=== PATIENT | female | born 1990 | race Caucasian/White ===

== ENCOUNTER 2018-04-23 14:00 | Inpatient (IN) | payer OTHER ==
[~2018-04-23] VITALS: Ht 154.9 cm; Wt 127.0 kg
[2018-04-23] MEDS: LACTATED RINGERS 1,000 ML IV SCH (14:50)
[2018-04-23] MEDS ORDERED: OXYTOCIN 20 UNITS in LACTATED RINGERS 1,000 ML IV SCH (15:26)
[2018-04-23] MEDS ORDERED: PROMETHAZINE 25 MG/ML VIAL IVP PRN (15:30)
[2018-04-23] MEDS ORDERED: IBUPROFEN 800 MG TAB PO PRN (15:30)
[2018-04-23] MEDS ORDERED: NALBUPHINE 10 MG/ML AMP IVP PRN (15:30)
[2018-04-23] MEDS ORDERED: CARBOPROST 250 MCG/ML AMP IM PRN (15:30)
[2018-04-23] MEDS ORDERED: METHYLERGONOVINE 0.2 MG/ML AMP IM PRN (15:30)
[2018-04-23] MEDS ORDERED: PREN-546 PO (15:38)
[2018-04-23] MEDS ORDERED: ALBU0.0912 IH (15:38)
[2018-04-23] MEDS ORDERED: CALC500T2 PO (15:38)
[2018-04-23] MEDS ORDERED: MISOPROSTOL 25 MCG TAB ONE ×2 (16:14→21:58)
[2018-04-23] MEDS: MISOPROSTOL 25 MCG TAB VG PRN ×2 (16:16→22:05)
[2018-04-23 17:27] LABS: BASOPHILS % (AUTO) 0.3 % (0.0-2.0); EOSINOPHILS # (AUTO) 0.1 K/uL (0-0.4); HEMATOCRIT 27.4 % (36-48); HEMOGLOBIN 8.4 g/dL (12.0-16.0); LYMPHOCYTES # (AUTO) 1.9 K/uL (2.5-16.5); LYMPHOCYTES % (AUTO) 22.1 % (20.5-51.1); MEAN CORPUSCULAR HEMOGLOBIN 22 pg (27-31); MEAN CORPUSCULAR HGB CONC 31 g/dL (33-37); MEAN CORPUSCULAR VOLUME 70.1 fL (80-94); MONOCYTES # (AUTO) 0.4 K/uL (0.8-1.0); MONOCYTES % (AUTO) 5.1 % (1.7-9.3); NEUTROPHILS % (AUTO) 71.5 % (42.2-75.2); PLATELET COUNT (AUTO) 285 K/uL (140-450); RED BLOOD CELL COUNT(AUTO) 3.91 MIL/uL (4.20-5.40); WHITE BLOOD COUNT (AUTO) 8.4 K/uL (4.8-10.8)
[2018-04-23 17:27] LABS: APPEARANCE,URINE SL CLOUDY (CLEAR); BILIRUBIN,URINE NEGATIVE (NEGATIVE); BLOOD, URINE NEGATIVE (NEGATIVE); COLOR,URINE YELLOW (YELLOW); LEUKOCYTE ESTERASE ,URINE 2+ (NEGATIVE); NITRITE, URINE NEGATIVE (NEGATIVE); UGLUCOSE NEGATIVE (NEGATIVE)
[2018-04-23 17:39] LABS: ALBUMIN 2.1 g/dL (3.4-5.0); ANION GAP 14.2 (8-16); CARBON DIOXIDE 22.4 mmol/L (21-32); CREATININE 0.4 mg/dL (0.6-1.3); POTASSIUM 3.6 mmol/L (3.5-5.1); TOTAL BILIRUBIN 0.2 mg/dL (0.0-1.0)
[2018-04-23 18:27] LABS: RBC,URINE 3-10 (FEW) /HPF (0-5); WBC,URINE 20-60 /HPF (0-5)
[2018-04-23] MEDS ORDERED: OXYTOCIN 10 UNITS/ML VIAL IM SCH (19:00)
[2018-04-24] MEDS ORDERED: MISOPROSTOL 25 MCG TAB ONE (05:12)
--- NOTE | 2018-04-24 08:48 | NUR ---
PATIENT HAS BEEN SCREENED AND CATEGORIZED LOW NUTRITION RISK. PATIENT WILL BE SEEN WITHIN 7 DAYS OF ADMISSION. 04/30/[address]
[2018-04-24] MEDS: LACTATED RINGERS 1,000 ML IV SCH (11:01)
[2018-04-24] MEDS ORDERED: BUPIVACAINE/DEXT 0.75% SPINAL 2 ML AMP INJ ONE (11:20)
[2018-04-24] MEDS ORDERED: OXYTOCIN 10 UNITS/ML VIAL ONE (11:21)
[2018-04-24] MEDS ORDERED: MIDAZOLAM 2 MG/2 ML VIAL ONE (11:22)
[2018-04-24] MEDS ORDERED: MORPHINE PRES FREE 2 MG/2 ML 2 mL UD SYRINGE ONE (11:22)
[2018-04-24] MEDS ORDERED: ceFAZolin 1,000 MG VIAL IVP ONE (11:38)
[2018-04-24] MEDS ORDERED: OXYTOCIN 20 UNITS in LACTATED RINGERS 1,000 ML IV SCH (12:02)
[2018-04-24] MEDS ORDERED: HYDROmorphone 1 MG/ML AMP IVP PRN (12:05)
[2018-04-24] MEDS ORDERED: NALOXONE 0.4 MG/ML VIAL IVP PRN ×3 (12:05)
[2018-04-24] MEDS ORDERED: ONDANSETRON 4 MG/2 ML VIAL IVP PRN ×2 (12:05)
[2018-04-24] MEDS ORDERED: diphenhydrAMINE 50 MG/ML VIAL IVP PRN ×2 (12:05)
[2018-04-24] MEDS ORDERED: MEPERIDINE 25 MG/ML SYR IVP PRN (12:05)
[2018-04-24] MEDS ORDERED: NALBUPHINE 10 MG/ML AMP IVP PRN (12:05)
[2018-04-24] MEDS ORDERED: ONDANSETRON 4 MG/2 ML VIAL ONE (13:03)
[2018-04-24] MEDS ORDERED: OXYTOCIN 20 UNITS/LR PREMIX 1,000 ML IV ONE (13:08)
[2018-04-24] MEDS ORDERED: SIMETHICONE 80 MG TAB.CHEW PO PRN (13:55)
[2018-04-24] MEDS ORDERED: SODIUM PHOSPHATE 118 ML ENEM RC PRN (13:55)
[2018-04-24] MEDS ORDERED: TEMAZEPAM 15 MG CAP PO PRN (13:55)
[2018-04-24] MEDS ORDERED: HYDROcodone/APAP 5/325 MG 1 TAB TAB PO PRN (13:55)
[2018-04-24] MEDS ORDERED: METHYLERGONOVINE 0.2 MG/ML AMP IM PRN (13:55)
[2018-04-24] MEDS ORDERED: IBUPROFEN 800 MG TAB PO PRN (14:00)
[2018-04-24] MEDS: OXYTOCIN 20 UNITS in LACTATED RINGERS 1,000 ML IV SCH (15:50)
[2018-04-24] MEDS: SENNA 8.6 MG TAB PO SCH (21:35)
[2018-04-25] MEDS: OXYTOCIN 20 UNITS in LACTATED RINGERS 1,000 ML IV SCH ×2 (00:27→09:40)
[2018-04-25] MEDS: KETOROLAC 30 MG/ML VIAL IM/IVP SCH ×3 (00:30→15:12)
[2018-04-25] MEDS ORDERED: OXYTOCIN 20 UNITS/LR PREMIX 1,000 ML IV ONE (06:34)
[2018-04-25 07:47] LABS: BASOPHILS % (AUTO) 0.4 % (0.0-2.0); EOSINOPHILS # (AUTO) 0.1 K/uL (0-0.4); EOSINOPHILS % (AUTO) 0.6 % (0.0-4.0); HEMATOCRIT 22.7 % (36-48); LYMPHOCYTES # (AUTO) 1.4 K/uL (2.5-16.5); LYMPHOCYTES % (AUTO) 11.9 % (20.5-51.1); MEAN CORPUSCULAR HEMOGLOBIN 22 pg (27-31); MEAN CORPUSCULAR HGB CONC 31 g/dL (33-37); MEAN CORPUSCULAR VOLUME 70.2 fL (80-94); MONOCYTES # (AUTO) 0.8 K/uL (0.8-1.0); MONOCYTES % (AUTO) 6.9 % (1.7-9.3); NEUTROPHILS # (AUTO) 9.1 K/uL (1.8-7.7); NEUTROPHILS % (AUTO) 80.2 % (42.2-75.2); PLATELET COUNT (AUTO) 197 K/uL (140-450); RED BLOOD CELL COUNT(AUTO) 3.24 MIL/uL (4.20-5.40); RED CELL DISTRIBUTION WIDTH 18.1 % (11.6-13.7); WHITE BLOOD COUNT (AUTO) 11.4 K/uL (4.8-10.8)
[2018-04-25] MEDS: FERROUS SULFATE 325 MG TABEC PO SCH (17:00)
[2018-04-25] MEDS: SENNA 8.6 MG TAB PO SCH (21:09)
[2018-04-25] MEDS: oxyCODONE/APAP 5/325 MG 1 TAB TAB PO PRN (21:12)
[2018-04-26] MEDS: oxyCODONE/APAP 5/325 MG 1 TAB TAB PO PRN ×3 (03:38→16:32)
[2018-04-26] MEDS: FERROUS SULFATE 325 MG TABEC PO SCH ×2 (08:00→17:00)
[2018-04-26] MEDS: SENNA 8.6 MG TAB PO SCH (21:12)
[2018-04-27] MEDS ORDERED: IBUP-1842 PO (08:16)
[2018-04-27] MEDS: FERROUS SULFATE 325 MG TABEC PO SCH (09:46)
== END 2018-04-27 14:15 | disposition home or self-care (01) | DRG 540 ==
LOC: MLD 14:00 → MFCC 04-24 13:52
PROVIDERS: ADMIT Obstetrics & Gynecology; ATTEND Obstetrics & Gynecology
PROC: 10D00Z1 Extraction of Products of Conception, Low, Open Approach (ICD-10-PCS; principal; 2018-04-24 11:30)
PROC: 3E0234Z Introduction of Serum, Toxoid and Vaccine into Muscle, Percutaneous Approach (ICD-10-PCS; 2018-04-26)
DX: O62.2 Other uterine inertia (principal); E66.01 Morbid (severe) obesity due to excess calories; Z37.0 Single live birth; Z68.43 Body mass index [BMI] 50.0-59.9, adult; O99.214 Obesity complicating childbirth; O99.52 Diseases of the respiratory system complicating childbirth; J45.909 Unspecified asthma, uncomplicated; O36.63X0 Maternal care for excessive fetal growth, third trimester, not applicable or unspecified; Z3A.39 39 weeks gestation of pregnancy; Z23 Encounter for immunization
CPT/HCPCS: 36415; 51702; 59200; 76805; 80053; 81001; 85025; 86592; 86886; 86900; 86901; 87086; 90715; J0690; J1885; J2250; J2270; J2405; J2590; J3490; J7060; J7120; Q0092

== ENCOUNTER 2020-05-30 00:45 | Emergency (ER) | payer OTHER ==
[~2020-05-30] VITALS: Ht 157.5 cm; Wt 97.5 kg
[~2020-05-30 00:45] MED LIST: ALBU0.0912 IH; CALC500T2 PO; IBUP-1842 PO; PREN-546 PO
--- NOTE | 2020-05-30 00:49 | NUR ---
PT TAKEN TO BED 11
[2020-05-30 00:55] VITALS: BP 142/76
--- NOTE | 2020-05-30 00:59 | NUR ---
30 year old female coming in for unknown animal/insect bite to RLE. report that it happened x 4 days. observed possible cellulitis. warm to the touch and pain upon palpation reported. denies any other s/sx. denies any other injury/trauma. awaiting MSE. denies pmhx nka
--- NOTE | 2020-05-30 01:06 | NUR ---
Dr. Burns examining patient.
[2020-05-30] MEDS ORDERED: LIDOCAINE/EPI 1% 1:100000 20 ML VIAL INJ ONE ×2 (01:10→01:20)
[2020-05-30] MEDS ORDERED: BACITRACIN OINT 500 UNITS/GM PKT TP ONE ×2 (01:13→01:20)
[2020-05-30 02:10] VITALS: BP 142/76
== END 2020-05-30 02:10 | disposition home or self-care (01) ==
LOC: MED 00:45
DX: L02.415 Cutaneous abscess of right lower limb (principal); F17.210 Nicotine dependence, cigarettes, uncomplicated; J45.909 Unspecified asthma, uncomplicated; Z79.899 Other long term (current) drug therapy
CPT/HCPCS: 10060; 99283; J2001; 12001

== ENCOUNTER 2021-04-06 00:18 | Emergency (ER) | payer OTHER ==
[~2021-04-06] VITALS: Ht 157.5 cm; Wt 87.1 kg
[2021-04-06 01:00] VITALS: BP 123/79
--- NOTE | 2021-04-06 01:08 | NUR ---
PT AMBULATED TO RESTROOM FOR URINE SAMPLE WITH STEADY AND EVEN GAIT.
[2021-04-06] MEDS ORDERED: LIDOCAINE MPF 1% 10 MG/ML VIAL INJ ONE (01:35)
[2021-04-06] MEDS ORDERED: AMOXICILLIN 500 MG CAP PO ONE (01:35)
[2021-04-06] MEDS ORDERED: AMOX-1000 PO (02:19)
[2021-04-06] MEDS ORDERED: IBUP-2218 PO (02:19)
--- NOTE | 2021-04-06 02:46 | NUR ---
PT PERFORMING PROCEDURE IN CHAIR B.
--- NOTE | 2021-04-06 03:15 | NUR ---
Patient discharged with v/s stable. Written and verbal after care instructions given and explained. Patient alert, oriented and verbalized understanding of instructions. Ambulatory with steady gait. All questions addressed prior to discharge. ID band removed. Patient advised to follow up with PMD. Rx of AUGMENTIN AND MOTRIN given. Patient educated on indication of medication including possible reaction and side effects. Opportunity to ask questions provided and answered.
== END 2021-04-06 03:15 | disposition home or self-care (01) ==
LOC: MED 00:18
DX: K04.7 Periapical abscess without sinus (principal); J45.909 Unspecified asthma, uncomplicated
CPT/HCPCS: 10060; 81025; 90471; 90715; 99283; J2001

== ENCOUNTER 2021-04-13 05:59 | Emergency (ER) | payer OTHER ==
[~2021-04-13] VITALS: Ht 162.6 cm; Wt 127.0 kg
[~2021-04-13 05:59] MED LIST changes: +AMOX-1000 PO; -IBUP-1842 PO; +IBUP-2218 PO
[2021-04-13 06:06] VITALS: BP 121/69
--- NOTE | 2021-04-13 06:06 | NUR ---
WOKE UP LAST NIGHT WITH "LEG CRAMPS" DENIES TRAUMA. C/O PAIN 04/10. ABLE TO AMBULATE WITH STEADY GAIT
--- NOTE | 2021-04-13 06:26 | NUR ---
Dr. Cano examining patient.
[2021-04-13] MEDS ORDERED: IBUP-2213 PO (06:35)
--- NOTE | 2021-04-13 07:44 | NUR ---
LABS DRAWN AND WALKED TO LAB, GAVE TO [facility].
[2021-04-13] MEDS ORDERED: KETOROLAC 60 MG/2 ML VIAL IM ONE ×2 (07:46→07:50)
[2021-04-13 08:36] LABS: ANION GAP 12.2 (8-16); CARBON DIOXIDE 26.5 mmol/L (21-32); CREATININE 0.6 mg/dL (0.6-1.3); POTASSIUM 3.7 mmol/L (3.5-5.1)
[2021-04-13 08:37] LABS: BASOPHILS % (AUTO) 0.7 % (0.0-2.0); EOSINOPHILS % (AUTO) 0.8 % (0.0-4.0); HEMATOCRIT 34.3 % (36-48); HEMOGLOBIN 10.2 g/dL (12.0-16.0); LYMPHOCYTES # (AUTO) 0.5 K/uL (2.5-16.5); LYMPHOCYTES % (AUTO) 9.4 % (20.5-51.1); MEAN CORPUSCULAR HEMOGLOBIN 20 pg (27-31); MEAN CORPUSCULAR HGB CONC 30 g/dL (33-37); MEAN CORPUSCULAR VOLUME 68.6 fL (80-94); MONOCYTES # (AUTO) 0.3 K/uL (0.8-1.0); MONOCYTES % (AUTO) 5.8 % (1.7-9.3); NEUTROPHILS # (AUTO) 4.5 K/uL (1.8-7.7); NEUTROPHILS % (AUTO) 83.3 % (42.2-75.2); PLATELET COUNT (AUTO) 324 K/uL (140-450); WHITE BLOOD COUNT (AUTO) 5.4 K/uL (4.8-10.8)
--- NOTE | 2021-04-13 09:05 | NUR ---
PT LEFT WITH DISCHARGE INSTRUCTIONS. WENT OUT TO DISCHARGE PATIENT AND NO ONE OUTSIDE.
== END 2021-04-13 09:05 | disposition home or self-care (01) ==
LOC: MED 05:59
DX: R25.2 Cramp and spasm (principal); J45.909 Unspecified asthma, uncomplicated; F17.200 Nicotine dependence, unspecified, uncomplicated; Z79.899 Other long term (current) drug therapy
CPT/HCPCS: 36415; 80048; 85025; 96372; 99283; J1885

== ENCOUNTER 2021-04-18 15:29 | Emergency (ER) | payer OTHER ==
[~2021-04-18] VITALS: Ht 157.5 cm; Wt 81.6 kg
[~2021-04-18 15:29] MED LIST changes: +IBUP-2213 PO
[2021-04-18 15:34] VITALS: BP 142/79
[2021-04-18] MEDS ORDERED: ACET-8386 PO (16:02)
[2021-04-18] MEDS ORDERED: AMOX500C25 PO (16:02)
[2021-04-18] MEDS ORDERED: IBUP-2213 PO (16:02)
--- NOTE | 2021-04-18 16:23 | NUR ---
Patient discharged with v/s stable. Written and verbal after care instructions given and explained. Patient alert, oriented and verbalized understanding of instructions. Ambulatory with steady gait. All questions addressed prior to discharge. ID band removed. Patient advised to follow up with PMD. Rx of [place], Ibuprofen and Amoxicillin given. Patient educated on indication of medication including possible reaction and side effects. Opportunity to ask questions provided and answered.
== END 2021-04-18 16:23 | disposition home or self-care (01) ==
LOC: MED 15:29
DX: K01.1 Impacted teeth (principal); J45.909 Unspecified asthma, uncomplicated; F17.210 Nicotine dependence, cigarettes, uncomplicated; Z79.899 Other long term (current) drug therapy
CPT/HCPCS: 99283

== ENCOUNTER 2021-08-25 08:27 | Emergency (ER) | payer OTHER ==
[~2021-08-25] VITALS: Ht 156.2 cm; Wt 67.6 kg
[~2021-08-25 08:27] MED LIST changes: +ACET-8386 PO; +AMOX500C25 PO
[2021-08-25 08:35] VITALS: BP 149/94
--- NOTE | 2021-08-25 08:41 | NUR ---
JERROD. HANDED ON URINE CUP.
--- NOTE | 2021-08-25 10:26 | NUR ---
PT TAKEN TO BED 9
--- NOTE | 2021-08-25 10:27 | NUR ---
31 Y FEMALE FROM HOME WANTING AN STD TEST DUE TO BOYFRIEND HAVING POSITIVE STD TEST X2 DAYS AGO. PER PT SHE HAS HAD SOME ITCHNESS, BUT DENIES ANY PAIN, DISCHARGE, OR ODOR AT THIS TIME. PMH: ASTHMA NKA
[2021-08-25] MEDS ORDERED: cefTRIAXone 500 MG in LIDOCAINE MPF 1% 1 ML IM ONE (11:00)
[2021-08-25] MEDS ORDERED: DOXY-487 PO (11:02)
[2021-08-25 11:03] VITALS: BP 144/74
[2021-08-25] MEDS ORDERED: LIDOCAINE MPF 1% 5 ML ONE (11:12)
[2021-08-25] MEDS ORDERED: cefTRIAXone 500 MG VIAL ONE (11:12)
--- NOTE | 2021-08-25 11:12 | NUR ---
URINE COLLECTED AND WALKED OVER TO LAB
--- NOTE | 2021-08-25 12:05 | NUR ---
PT CURRENTLY NOT IN BED 9 AT THIS TIME. ATTEMPTED TO CALL PATIENT, BUT WENT STRAIGHT TO [facility]. VM LEFT FOR PATIENT AND DR. HOFFMANN MADE AWARE
== END 2021-08-25 12:05 | disposition left against medical advice (07) ==
LOC: MED 08:27
DX: Z11.3 Encounter for screening for infections with a predominantly sexual mode of transmission (principal)
CPT/HCPCS: 81002; 81025; 96372; 99283; J0696; J2001

== ENCOUNTER 2023-05-02 01:15 | Observation (INO) | payer MEDICAID ==
[~2023-05-02] VITALS: Ht 152.4 cm; Wt 127.0 kg
[~2023-05-02 01:15] MED LIST changes: -ACET-8386 PO; +ACET-8905 PO; +DOXY-487 PO
[2023-05-02] MEDS ORDERED: LACTATED RINGERS 1,000 ML IV SCH (02:35)
[2023-05-02] MEDS ORDERED: TERBUTALINE 1 MG/ML VIAL SUBQ ONE (03:37)
[2023-05-02] MEDS ORDERED: TERBUTALINE 1 MG/ML VIAL SUBQ SCH (04:15)
== END 2023-05-02 04:45 | disposition home or self-care (01) ==
LOC: MLD 01:15
PROVIDERS: ADMIT Obstetrics & Gynecology; ATTEND Obstetrics & Gynecology
DX: O26.899 Other specified pregnancy related conditions, unspecified trimester (principal); R10.9 Unspecified abdominal pain; Z3A.00 Weeks of gestation of pregnancy not specified
CPT/HCPCS: 59025; 81000; 96360; 96372; G0378; J3105

== ENCOUNTER 2023-06-19 19:17 | Inpatient (IN) | payer MEDICAID ==
[~2023-06-19] VITALS: Ht 162.6 cm; Wt 81.4 kg
[~2023-06-19 19:17] MED LIST changes: -ACET-8905 PO; -AMOX-1000 PO; -AMOX500C25 PO; -CALC500T2 PO; -DOXY-487 PO; -IBUP-2213 PO; -IBUP-2218 PO
[2023-06-19 19:28] VITALS: BP 135/97; PULSE 90; RESP 18; TEMP 97.6; O2SAT 100
[2023-06-19] MEDS ORDERED: ALBUTEROL 0.083% 2.5 MG/3 ML NEBU INH ONE ×2 (19:50→20:55)
[2023-06-19] MEDS ORDERED: ALBUTEROL SULFATE/IPRATROPIU 3 ML SOL IH ONE ×2 (19:50→20:55)
[2023-06-19] MEDS ORDERED: predniSONE 20 MG TAB PO ONE (19:50)
[2023-06-19] MEDS ORDERED: ONDANSETRON 4 MG ODT PO ONE (19:50)
[2023-06-19 20:10] VITALS: PULSE 148; RESP 20; O2SAT 98
[2023-06-19] MEDS ORDERED: ALBU0.0912 INH (20:11)
[2023-06-19] MEDS ORDERED: PRED20TA5 PO (20:11)
[2023-06-19] MEDS ORDERED: ONDA8TAB87 PO (20:11)
[2023-06-19 21:15] VITALS: PULSE 155; RESP 18; O2SAT 95
[2023-06-19 21:15] LABS: BASOPHILS % (AUTO) 0.4 % (0.0-2.0); EOSINOPHILS % (AUTO) 0.3 % (0.0-4.0); HEMATOCRIT 30.9 % (36-48); HEMOGLOBIN 9.4 g/dL (12.0-16.0); LYMPHOCYTES # (AUTO) 1.8 K/uL (2.5-16.5); LYMPHOCYTES % (AUTO) 14.8 % (20.5-51.1); MEAN CORPUSCULAR HEMOGLOBIN 22 pg (27-31); MEAN CORPUSCULAR HGB CONC 30 g/dL (33-37); MEAN CORPUSCULAR VOLUME 73.9 fL (80-94); MONOCYTES # (AUTO) 0.7 K/uL (0.8-1.0); MONOCYTES % (AUTO) 5.7 % (1.7-9.3); NEUTROPHILS # (AUTO) 9.5 K/uL (1.8-7.7); NEUTROPHILS % (AUTO) 78.8 % (42.2-75.2); PLATELET COUNT (AUTO) 258 K/uL (140-450); RED BLOOD CELL COUNT(AUTO) 4.18 MIL/uL (4.20-5.40); RED CELL DISTRIBUTION WIDTH 24.2 % (11.6-13.7); WHITE BLOOD COUNT (AUTO) 12.1 K/uL (4.8-10.8)
[2023-06-19] MEDS ORDERED: NACL 0.9% 1,000 ML IV ONE (22:30)
[2023-06-20] VITALS (13 sets, daily range): BP systolic 103–117; BP diastolic 70–90; PULSE 112–160; RESP 18–23; TEMP 96.9–98; O2SAT 95–100
[2023-06-20] MEDS ORDERED: ACETAMINOPHEN EXTRA STRENGTH 500 MG TAB PO ONE (00:20)
[2023-06-20] MEDS ORDERED: KETOROLAC 30 MG/ML VIAL IVP ONE (00:20)
[2023-06-20] MEDS ORDERED: KETOROLAC 60 MG/2 ML VIAL IM ONE (00:30)
[2023-06-20 00:59] LABS: FLU A ANTIGEN negative (NEGATIVE); FLU B ANTIGEN NEGATIVE (NEGATIVE)
[2023-06-20 02:14] LABS: AMPHETAMINE, URINE POSITIVE ng/ml (NEG <=1000); BARBITURATE, URINE NEGATIVE ng/ml (NEG <=200); BENZODIAZEPINE, URINE NEGATIVE ng/mL (NEG <=200); CANNABINOID, URINE POSITIVE ng/mL (NEG <=50); COCAINE, URINE NEGATIVE ng/mL (NEG <=300); PHENCYCLIDINE SCREEN,URINE NEGATIVE ng/mL (NEG <=25)
[2023-06-20 02:15] LABS: OPIATE, URINE NEGATIVE ng/mL (NEG <=2000)
[2023-06-20 03:00] LABS: POTASSIUM 5.1 mmol/L (3.5-5.1)
[2023-06-20 03:01] LABS: ANION GAP 14.9 (8-16); CALCIUM 7.8 mg/dL (8.5-10.1); CARBON DIOXIDE 24.2 mmol/L (21-32); CREATININE 0.7 mg/dL (0.6-1.3)
[2023-06-20] MEDS ORDERED: HEPARIN PER PHARMACY MC STA (05:08)
[2023-06-20] MEDS ORDERED: POTASSIUM CHLORIDE 10 MEQ TABER PO PRN (06:40)
[2023-06-20] MEDS ORDERED: ALBUTEROL 0.083% 2.5 MG/3 ML NEBU INH PRN (06:40)
[2023-06-20] MEDS ORDERED: DOCUSATE SODIUM 100 MG GELCAP PO PRN (06:40)
[2023-06-20] MEDS ORDERED: ACETAMINOPHEN 325 MG TAB PO PRN (06:40)
[2023-06-20] MEDS ORDERED: hePARIN / DEXT 5% PREMIX 250 ML IV SCH ×2 (06:45→07:15)
[2023-06-20] MEDS ORDERED: HEPARIN PER PHARMACY MC PRN (06:45)
[2023-06-20 07:09] LABS: INR 1.38 (0.8-1.2); PARTIAL THROMBOPLASTIN TIME 23.9 secs (22-35.6); PROTHROMBIN TIME 14.3 secs (10.8-13.4)
[2023-06-20] MEDS ORDERED: LOVENOX 1MG/KG Q12H SUBQ SCH (09:40)
[2023-06-20] MEDS: ENOXAPARIN 100 MG/ML SYR SUBQ SCH ×2 (11:26→20:34)
[2023-06-20] MEDS ORDERED: METOPROLOL 25 MG TAB PO SCH (17:15)
[2023-06-20] MEDS ORDERED: ZOLPIDEM 5 MG TAB ONE ×2 (20:25→20:30)
[2023-06-20] MEDS: ZOLPIDEM 10 MG TAB PO PRN (20:34)
[2023-06-20] MEDS: MORPHINE SULFATE 2 MG/ML SYR IVP PRN (20:54)
[2023-06-21] VITALS (29 sets, daily range): BP systolic 94–126; BP diastolic 58–110; PULSE 134–158; RESP 23–49; TEMP 97.4–99.7; O2SAT 93–100
[2023-06-21] MEDS: LORazepam 2 MG/ML VIAL IVP PRN ×2 (06:01→21:42)
[2023-06-21 06:19] LABS: ANION GAP 15.2 (8-16); CALCIUM 8.4 mg/dL (8.5-10.1); CARBON DIOXIDE 25.5 mmol/L (21-32); CREATININE 1.1 mg/dL (0.6-1.3); POTASSIUM 5.7 mmol/L (3.5-5.1)
[2023-06-21 06:57] LABS: BASOPHILS % (AUTO) 0.2 % (0.0-2.0); EOSINOPHILS % (AUTO) 0.1 % (0.0-4.0); HEMATOCRIT 32.2 % (36-48); HEMOGLOBIN 9.7 g/dL (12.0-16.0); LYMPHOCYTES # (AUTO) 1.7 K/uL (2.5-16.5); LYMPHOCYTES % (AUTO) 15.9 % (20.5-51.1); MEAN CORPUSCULAR HEMOGLOBIN 23 pg (27-31); MEAN CORPUSCULAR HGB CONC 30 g/dL (33-37); MEAN CORPUSCULAR VOLUME 74.8 fL (80-94); MONOCYTES # (AUTO) 0.8 K/uL (0.8-1.0); MONOCYTES % (AUTO) 7.5 % (1.7-9.3); NEUTROPHILS # (AUTO) 8.3 K/uL (1.8-7.7); NEUTROPHILS % (AUTO) 76.3 % (42.2-75.2); PLATELET COUNT (AUTO) 435 K/uL (140-450); RED CELL DISTRIBUTION WIDTH 24.5 % (11.6-13.7); WHITE BLOOD COUNT (AUTO) 10.8 K/uL (4.8-10.8)
[2023-06-21] MEDS: ENOXAPARIN 100 MG/ML SYR SUBQ SCH ×2 (09:25→21:13)
[2023-06-21 11:02] LABS: ANION GAP 14.9 (8-16); CALCIUM 7.9 mg/dL (8.5-10.1); CARBON DIOXIDE 24.2 mmol/L (21-32); CREATININE 1.2 mg/dL (0.6-1.3)
[2023-06-21 11:05] LABS: POTASSIUM 6.1 mmol/L (3.5-5.1)
[2023-06-21] MEDS ORDERED: SODIUM ZIRCONIUM CYCLOSILICATE 10 GM POWD.PACK PO SCH (14:00)
[2023-06-21] MEDS: MAG SULF 2000 MG/WATER PREMIX 50 ML IV PRN (14:03)
[2023-06-21] MEDS: MORPHINE SULFATE 2 MG/ML SYR IVP PRN (18:45)
[2023-06-21 19:18] LABS: ANION GAP 13.2 (8-16); CALCIUM 7.8 mg/dL (8.5-10.1); CREATININE 1.2 mg/dL (0.6-1.3); POTASSIUM 5.2 mmol/L (3.5-5.1)
[2023-06-21] MEDS: METOPROLOL SUCCINATE 50 MG TABER PO SCH (21:06)
[2023-06-22] VITALS (27 sets, daily range): BP systolic 105–136; BP diastolic 66–95; PULSE 113–146; RESP 12–40; TEMP 98–99.1; O2SAT 90–100
[2023-06-22] MEDS: MORPHINE SULFATE 2 MG/ML SYR IVP PRN ×3 (01:48→18:33)
[2023-06-22 04:46] LABS: HEMOGLOBIN 8.9 g/dL (12.0-16.0); MEAN CORPUSCULAR HEMOGLOBIN 22 pg (27-31); MEAN CORPUSCULAR HGB CONC 31 g/dL (33-37); MEAN CORPUSCULAR VOLUME 72.8 fL (80-94); PLATELET COUNT (AUTO) 419 K/uL (140-450); RED BLOOD CELL COUNT(AUTO) 3.98 MIL/uL (4.20-5.40); RED CELL DISTRIBUTION WIDTH 24.7 % (11.6-13.7); WHITE BLOOD COUNT (AUTO) 14.1 K/uL (4.8-10.8)
[2023-06-22 04:53] LABS: ANION GAP 13.3 (8-16); CALCIUM 8.1 mg/dL (8.5-10.1); CARBON DIOXIDE 24.6 mmol/L (21-32); CREATININE 1.2 mg/dL (0.6-1.3); POTASSIUM 4.9 mmol/L (3.5-5.1)
[2023-06-22 05:30] LABS: LYMPHOCYTES % (MANUAL) 29 % (20-46); MONOCYTES % (MANUAL) 5 % (5-12)
[2023-06-22 05:31] LABS: ANISOCYTOSIS 2+
[2023-06-22 05:32] LABS: HYPOCHROMASIA 1+
[2023-06-22] MEDS ORDERED: ENOXAPARIN 80 MG/0.8 ML SYR SUBQ SCH (09:31)
[2023-06-22] MEDS ORDERED: FUROSEMIDE 20 MG/2 ML VIAL IVP SCH (10:07)
[2023-06-22] MEDS: ONDANSETRON 4 MG/2 ML VIAL IVP PRN (11:36)
[2023-06-22] MEDS: CHLORHEXADINE GLUC 2% CLOTH TP SCH (20:35)
[2023-06-22] MEDS: METOPROLOL SUCCINATE 50 MG TABER PO SCH (21:34)
[2023-06-22] MEDS: ENOXAPARIN 80 MG/0.8 ML SYR SUBQ SCH (21:36)
[2023-06-22] MEDS: FUROSEMIDE 20 MG/2 ML VIAL IVP SCH (22:09)
[2023-06-23] VITALS (26 sets, daily range): BP systolic 91–124; BP diastolic 43–90; PULSE 103–131; RESP 17–32; TEMP 96.9–98.4; O2SAT 90–100
[2023-06-23] MEDS: MUPIROCIN CA NASAL 2% 1GM TUBE NS SCH ×2 (02:37→20:59)
[2023-06-23] MEDS: MORPHINE SULFATE 2 MG/ML SYR IVP PRN ×2 (02:39→12:42)
[2023-06-23 05:17] LABS: BASOPHILS # (AUTO) 0.1 K/uL (0.00-0.22); BASOPHILS % (AUTO) 0.5 % (0.0-2.0); EOSINOPHILS % (AUTO) 0.1 % (0.0-4.0); HEMATOCRIT 30.4 % (36-48); HEMOGLOBIN 9.1 g/dL (12.0-16.0); LYMPHOCYTES # (AUTO) 2.2 K/uL (2.5-16.5); LYMPHOCYTES % (AUTO) 21.1 % (20.5-51.1); MEAN CORPUSCULAR HEMOGLOBIN 22 pg (27-31); MEAN CORPUSCULAR HGB CONC 30 g/dL (33-37); MEAN CORPUSCULAR VOLUME 73.8 fL (80-94); MONOCYTES # (AUTO) 0.7 K/uL (0.8-1.0); MONOCYTES % (AUTO) 6.6 % (1.7-9.3); NEUTROPHILS # (AUTO) 7.3 K/uL (1.8-7.7); NEUTROPHILS % (AUTO) 71.7 % (42.2-75.2); PLATELET COUNT (AUTO) 420 K/uL (140-450); RED BLOOD CELL COUNT(AUTO) 4.12 MIL/uL (4.20-5.40); RED CELL DISTRIBUTION WIDTH 24.5 % (11.6-13.7); WHITE BLOOD COUNT (AUTO) 10.2 K/uL (4.8-10.8)
[2023-06-23 06:09] LABS: ANION GAP 12.8 (8-16); CALCIUM 7.9 mg/dL (8.5-10.1); CARBON DIOXIDE 26.8 mmol/L (21-32); CREATININE 1.1 mg/dL (0.6-1.3); POTASSIUM 4.6 mmol/L (3.5-5.1)
[2023-06-23] MEDS: ONDANSETRON 4 MG/2 ML VIAL IVP PRN ×2 (06:10→12:08)
[2023-06-23] MEDS ORDERED: LEVALBUTEROL 1.25 MG/0.5 ML NEBU INH ONE ×2 (06:40→06:41)
[2023-06-23] MEDS ORDERED: LEVALBUTEROL 1.25 MG/0.5 ML NEBU INH PRN (07:00)
[2023-06-23] MEDS: FUROSEMIDE 20 MG/2 ML VIAL IVP SCH ×2 (08:30→20:59)
[2023-06-23] MEDS: ENOXAPARIN 80 MG/0.8 ML SYR SUBQ SCH ×2 (08:31→21:00)
[2023-06-23] MEDS: MAG SULF 2000 MG/WATER PREMIX 50 ML IV PRN (08:32)
[2023-06-23] MEDS: METOPROLOL SUCCINATE 50 MG TABER PO SCH (08:35)
[2023-06-23] MEDS: lisinopriL 10 MG TAB PO SCH (14:28)
[2023-06-23] MEDS: SPIRONOLACTONE 25 MG TAB PO SCH (17:22)
[2023-06-23] MEDS: CHLORHEXADINE GLUC 2% CLOTH TP SCH (21:00)
[2023-06-24] VITALS (24 sets, daily range): BP systolic 98–129; BP diastolic 54–86; PULSE 72–112; RESP 13–23; TEMP 97–98.4; O2SAT 94–100
[2023-06-24] MEDS ORDERED: ZOLPIDEM 5 MG TAB ONE (01:48)
[2023-06-24] MEDS: ZOLPIDEM 10 MG TAB PO PRN (01:49)
[2023-06-24 05:23] LABS: BASOPHILS # (AUTO) 0.1 K/uL (0.00-0.22); EOSINOPHILS % (AUTO) 0.3 % (0.0-4.0); LYMPHOCYTES # (AUTO) 1.8 K/uL (2.5-16.5); LYMPHOCYTES % (AUTO) 18.8 % (20.5-51.1); MEAN CORPUSCULAR HEMOGLOBIN 22 pg (27-31); MEAN CORPUSCULAR HGB CONC 30 g/dL (33-37); MEAN CORPUSCULAR VOLUME 73.1 fL (80-94); MONOCYTES # (AUTO) 0.7 K/uL (0.8-1.0); MONOCYTES % (AUTO) 7.6 % (1.7-9.3); NEUTROPHILS # (AUTO) 6.8 K/uL (1.8-7.7); NEUTROPHILS % (AUTO) 72.3 % (42.2-75.2); PLATELET COUNT (AUTO) 407 K/uL (140-450); RED CELL DISTRIBUTION WIDTH 24.4 % (11.6-13.7); WHITE BLOOD COUNT (AUTO) 9.4 K/uL (4.8-10.8)
[2023-06-24 07:33] LABS: CALCIUM 7.4 mg/dL (8.5-10.1); CREATININE 0.8 mg/dL (0.6-1.3)
[2023-06-24] MEDS: FUROSEMIDE 20 MG/2 ML VIAL IVP SCH (08:18)
[2023-06-24] MEDS: SPIRONOLACTONE 25 MG TAB PO SCH ×2 (08:19→17:04)
[2023-06-24] MEDS: ENOXAPARIN 80 MG/0.8 ML SYR SUBQ SCH (08:23)
[2023-06-24] MEDS: lisinopriL 10 MG TAB PO SCH (08:24)
[2023-06-24] MEDS: METOPROLOL SUCCINATE 50 MG TABER PO SCH (08:24)
[2023-06-24] MEDS ORDERED: ALPRAZolam 0.25 MG TAB PO PRN (12:50)
[2023-06-24] MEDS ORDERED: CLINICAL MONITORING MC PRN (13:20)
[2023-06-24 15:00] LABS: AMPHETAMINE, URINE NEGATIVE ng/ml (NEG <=1000); BARBITURATE, URINE NEGATIVE ng/ml (NEG <=200); BENZODIAZEPINE, URINE POSITIVE ng/mL (NEG <=200); CANNABINOID, URINE NEGATIVE ng/mL (NEG <=50); COCAINE, URINE NEGATIVE ng/mL (NEG <=300); OPIATE, URINE POSITIVE ng/mL (NEG <=2000); PHENCYCLIDINE SCREEN,URINE NEGATIVE ng/mL (NEG <=25)
[2023-06-24] MEDS ORDERED: APIXABAN 2.5 MG TAB PO SCH (21:00)
== END 2023-06-24 19:30 | disposition left against medical advice (07) | DRG 561 ==
LOC: MED 19:17 → MTU 06-20 06:38 → MIC 06-20 19:53
PROVIDERS: ADMIT Family Medicine; ATTEND Family Medicine
DX: O88.23 Thromboembolism in the puerperium (principal); I26.99 Other pulmonary embolism without acute cor pulmonale; J96.01 Acute respiratory failure with hypoxia; I50.23 Acute on chronic systolic (congestive) heart failure; E87.1 Hypo-osmolality and hyponatremia; E83.51 Hypocalcemia; O99.325 Drug use complicating the puerperium; I11.0 Hypertensive heart disease with heart failure; O99.53 Diseases of the respiratory system complicating the puerperium; O99.43 Diseases of the circulatory system complicating the puerperium; O99.285 Endocrine, nutritional and metabolic diseases complicating the puerperium; O90.89 Other complications of the puerperium, not elsewhere classified; D50.9 Iron deficiency anemia, unspecified; F15.10 Other stimulant abuse, uncomplicated; J45.909 Unspecified asthma, uncomplicated; Z53.29 Procedure and treatment not carried out because of patient's decision for other reasons; I36.1 Nonrheumatic tricuspid (valve) insufficiency; Z20.822 Contact with and (suspected) exposure to COVID-19
CPT/HCPCS: 36415; 71045; 71275; 80048; 80305; 83735; 83880; 84443; 84484; 85025; 85610; 85730; 87040; 87081; 93005; 93970; 94640; 96361; 96374; 97116; 97163-GP; 99285; J1644; J1650; J1885; J1940; J2060; J2270; J2405; J3475; J7512; J7612; J7613; Q0092; Q0162; Q9967